=== PATIENT | male | born 1950 | race Caucasian/White ===

== ENCOUNTER 2023-12-29 09:49 | Inpatient (IN) | payer BC, OTHER ==
[2023-12-29 10:23] LABS: BASOPHILS PERCENT AUTO 0.2 % (0.0-1.0); EOSINOPHILS PERCENT AUTO 0.5 % (1.0-3.0); HEMATOCRIT 38.5 % (40.0-54.0); HEMOGLOBIN 12.4 g/dL (14.0-18.0); LYMPHOCYTES PERCENT AUTO 7.2 % (20.5-50.1); MEAN CORPUSCULAR HEMOGLOBIN 29.4 pg (27.0-34.0); MEAN CORPUSCULAR HGB CONC 32.2 g/dL (33.0-35.0); MEAN CORPUSCULAR VOLUME 91.2 fL (80-100); MONOCYTES PERCENT AUTO 7.6 % (2-8); NEUTROPHILS PERCENT AUTO 84.5 % (42.2-75.2); PLATELET COUNT,PLT 274 10^3/uL (150-450); RED BLOOD CELL COUNT 4.22 10^6/uL (4.6-6.2); WHITE BLOOD CELL COUNT,WBC 12.9 10^3/uL (5.0-10.0)
[2023-12-29 10:31] LABS: PROTHROMBIN TIME 10.3 SEC (9.0-12.0); PTT,PARTIAL THROMBOPLSTIN TIME 26.4 SEC (22.0-34.0)
[2023-12-29 10:34] LABS: ALBUMIN 3.9 g/dL (3.4-5.0); BILIRUBIN TOTAL 1.8 mg/dL (0.2-1.0); BUN/CREATININE RATIO 25.3 (No establ ref range); C-REACTIVE PROTEIN 8.94 ng/dL (<=0.50); CALCIUM 9.8 mg/dL (8.5-10.1); CREATININE 0.95 mg/dL (0.70-1.30); EST CRCL DRUG DOSING (CG) 83.75 mL/min; PROTEIN TOTAL,TP 7.8 g/dL (6.4-8.2)
[2023-12-29 10:35] LABS: LACTIC ACID 0.7 mmol/L (0.4-2.0)
[2023-12-29] MEDS: Iopamidol 755 Mg/ML 100 ML Bottle IVPUSH ONE (11:08)
[2023-12-29] MEDS: Heparin Sodium 5,000 Units/ML Vial IVPUSH ONE (11:36)
[2023-12-29] MEDS: Heparin Sodium/0.45% NaCl 25,000 UNITS/500 ML BAG IV SCH (11:37)
[2023-12-29] MEDS: Azithromycin 500 MG in Sodium Chloride 0.9% 250 ML IV ONE (11:52)
[2023-12-29] MEDS: Acetaminophen/HYDROcodone 325-5 MG Tab PO ONE (11:52)
[2023-12-29] MEDS: cefTRIAXone 2 GM Vial IVPUSH ONE (11:52)
[2023-12-29] MEDS: Sodium Chloride 0.9% 10 ML Syringe FLUSH PRN (11:59)
[2023-12-29] MEDS ORDERED: Acetaminophen 325 MG Tab PO PRN (13:14)
[2023-12-29] MEDS ORDERED: Magnesium Hydroxide 400 MG/5 ML Susp 30 ML Cup PO PRN (13:14)
[2023-12-29] MEDS ORDERED: Naloxone 2 MG/2 ML Syringe IVPUSH PRN (13:14)
[2023-12-29] MEDS ORDERED: Ondansetron 4 MG/2 ML SDV IVPUSH PRN (13:14)
[2023-12-29] MEDS: Enoxaparin 100 MG/1 ML Syringe SUBCUT SCH ×2 (14:50→20:58)
[2023-12-29] MEDS: HYDROmorphone 0.5 MG/0.5 ML Syringe IVPUSH PRN (14:51)
[2023-12-29] MEDS: Temazepam 15 MG Cap PO PRN (20:57)
[2023-12-29] MEDS: Pantoprazole 40 MG Tab.CR PO SCH (20:57)
[2023-12-30] MEDS: Sodium Chloride 0.9% 1,000 ML IV SCH (05:45)
[2023-12-30 06:25] LABS: BASOPHILS PERCENT AUTO 0.2 % (0.0-1.0); EOSINOPHILS PERCENT AUTO 0.5 % (1.0-3.0); HEMATOCRIT 32.4 % (40.0-54.0); HEMOGLOBIN 10.4 g/dL (14.0-18.0); LYMPHOCYTES PERCENT AUTO 6.6 % (20.5-50.1); MEAN CORPUSCULAR HEMOGLOBIN 29.5 pg (27.0-34.0); MEAN CORPUSCULAR HGB CONC 32.1 g/dL (33.0-35.0); MEAN CORPUSCULAR VOLUME 91.8 fL (80-100); MONOCYTES PERCENT AUTO 8.6 % (2-8); NEUTROPHILS PERCENT AUTO 84.1 % (42.2-75.2); PLATELET COUNT,PLT 259 10^3/uL (150-450); RED BLOOD CELL COUNT 3.53 10^6/uL (4.6-6.2); WHITE BLOOD CELL COUNT,WBC 11.2 10^3/uL (5.0-10.0)
[2023-12-30 07:08] LABS: ANION GAP 12.9 mEq/L (7-13); CALCIUM 8.7 mg/dL (8.5-10.1); CREATININE 1.13 mg/dL (0.70-1.30); EST CRCL DRUG DOSING (CG) 64.82 mL/min; MAGNESIUM 1.9 mg/dL (1.8-2.4); POTASSIUM,K 3.9 mmol/L (3.5-5.1)
[2023-12-30] MEDS: cefTRIAXone 1 GM Vial IVPUSH SCH (10:36)
[2023-12-30] MEDS: Docusate Sodium 100 MG Cap PO PRN (11:19)
[2023-12-30] MEDS: oxyCODONE 5 MG Tab PO PRN ×2 (17:36→21:54)
[2023-12-31] MEDS ORDERED: Folic Acid 1 MG Tab PO SCH (09:15)
[2023-12-31 09:28] LABS: BASOPHILS PERCENT AUTO 0.2 % (0.0-1.0); EOSINOPHILS PERCENT AUTO 1.4 % (1.0-3.0); HEMATOCRIT 32.3 % (40.0-54.0); HEMOGLOBIN 10.4 g/dL (14.0-18.0); LYMPHOCYTES PERCENT AUTO 6.1 % (20.5-50.1); MEAN CORPUSCULAR HEMOGLOBIN 29.5 pg (27.0-34.0); MEAN CORPUSCULAR HGB CONC 32.2 g/dL (33.0-35.0); MEAN CORPUSCULAR VOLUME 91.5 fL (80-100); MONOCYTES PERCENT AUTO 6.5 % (2-8); NEUTROPHILS PERCENT AUTO 85.8 % (42.2-75.2); PLATELET COUNT,PLT 256 10^3/uL (150-450); RED BLOOD CELL COUNT 3.53 10^6/uL (4.6-6.2); WHITE BLOOD CELL COUNT,WBC 9.1 10^3/uL (5.0-10.0)
[2023-12-31] MEDS ORDERED: Levothyroxine 125 MCG Tab PO ONE (09:30)
[2023-12-31 09:47] LABS: ANION GAP 13.1 mEq/L (7-13); CREATININE 1.02 mg/dL (0.70-1.30); EST CRCL DRUG DOSING (CG) 71.81 mL/min; POTASSIUM,K 4.1 mmol/L (3.5-5.1)
[2023-12-31] MEDS: Docusate Sodium 100 MG Cap PO SCH (11:38)
[2023-12-31] MEDS: Levothyroxine 125 MCG Tab PO SCH (11:39)
[2023-12-31] MEDS: Rosuvastatin 10 MG Tab PO SCH ×2 (11:40→20:34)
[2024-01-02] MEDS: Sennosides/Docusate Sodium 50-8.6 MG Tab PO SCH (08:38)
[2024-01-02] MEDS: Losartan 50 MG Tab ONE (15:17)
[2024-01-02] MEDS: Apixaban 5 MG Tab PO SCH (15:17)
[2024-01-02] MEDS: Levothyroxine 125 MCG Tab ONE (15:17)
[2024-01-02] MEDS ORDERED: Apixaban 5 MG Tab PO ONE (15:29)
== END 2024-01-02 15:30 | disposition home or self-care (01) | DRG 175 ==
LOC: DL.ED 09:49 → DL.MS 12:12
PROVIDERS: ADMIT Family Medicine Adult Medicine; ATTEND Family Medicine Adult Medicine
DX: I26.99 Other pulmonary embolism without acute cor pulmonale (principal); J96.01 Acute respiratory failure with hypoxia; C61 Malignant neoplasm of prostate; I10 Essential (primary) hypertension; E03.9 Hypothyroidism, unspecified; E78.00 Pure hypercholesterolemia, unspecified; Z88.0 Allergy status to penicillin; Z90.49 Acquired absence of other specified parts of digestive tract; Z99.81 Dependence on supplemental oxygen; Z79.890 Hormone replacement therapy; Z98.890 Other specified postprocedural states; Z79.899 Other long term (current) drug therapy; Z96.653 Presence of artificial knee joint, bilateral
CPT/HCPCS: 36415; 71275; 80048; 80053; 82947; 83605; 83690; 83735; 84443; 84484; 85025; 85610; 85730; 86140; 93005; 93010; 94010; 96365; 96375; 97116-GP; 97161-GP; 97165-GO; 99223; 99232; 99233; 99238; 99285; 99285-25; A9270-GY; J0456; J0696; J1170; J1644; J1650; J3490; J7030; J7050; Q9967